=== PATIENT | female | born 1955 | race Caucasian/White ===

== ENCOUNTER → 2023-05-18 07:52 | Outpatient (REF) | payer MEDICARE, SELFPAY | LOC: WDC 07:52 | PROVIDERS: ATTENDING PHYSICIAN Student in an Organized Health Care Education/Training Program | DX: Z12.31 Encounter for screening mammogram for malignant neoplasm of breast (principal) | CPT/HCPCS: 77063; 77067 ==

== ENCOUNTER → 2024-05-23 08:16 | Outpatient (REF) | payer MEDICARE, SELFPAY | LOC: WDC 08:16 | PROVIDERS: ATTENDING PHYSICIAN Physician Assistant | DX: Z12.31 Encounter for screening mammogram for malignant neoplasm of breast (principal) | CPT/HCPCS: 77063; 77067 ==

== ENCOUNTER → 2024-05-25 08:33 | Outpatient (REF) | payer MEDICARE, SELFPAY | LOC: RAD 08:33 | PROVIDERS: ATTENDING PHYSICIAN Physician Assistant; FAMILY PHYSICIAN Student in an Organized Health Care Education/Training Program | DX: M85.80 Other specified disorders of bone density and structure, unspecified site (principal); M85.89 Other specified disorders of bone density and structure, multiple sites | CPT/HCPCS: 77080 ==

== ENCOUNTER 2024-10-08 08:44 | Emergency (ER) | payer MEDICARE, SELFPAY ==
[2024-10-08 08:45] VITALS: BP 153/79
--- NOTE | 2024-10-08 09:26 | ED.GENMED ---
History of Present Illness
General
Chief Complaint: Musculo-Skeletal Complaint
Source: patient and spouse
Time Seen by Provider: 10/08/24 09:15
History of Present Illness
History of Present Illness:
69-year-old female presents to the emergency room complaining of pain in her left neck rating to her left shoulder and somewhat down her left arm. No focal weakness. Patient is left-hand dominant. Symptoms began 2 days ago after bending awkwardly
to open a window the day previous. She has a vague sense of perhaps a tingling in her left arm which she identifies as encompassing the entire arm and hand but in a very minor way. No loss of touch sensation. No bowel or bladder dysfunction.
Certain movements, taking a deep breath make the pain worse. She took ibuprofen today 400 mg. No significant improvement. She has had previous thoracic and lumbar spine issues for which she has required physical therapy
Phy Exam
Physical Exam
Physical Exam:
General: Awake, Alert, Oriented X3. No acute distress.
Vitals: unremarkable
Head: Atraumatic
Eyes: Pupils equal, EOMI
Throat: Airway intact, no exudates
Neck: Trachea midline, no tenderness to palpation of the midline cervical spine. Right paraspinal muscular tenderness as well as right trapezius tenderness. She has pain in the right neck and shoulder with axial loading. She denies radiation down
the arm with axial loading
Lungs: Clear and equal b/l
Heart: Regular rate, no murmurs
Abd: Soft, Nontender, No pulsatile mass
Neuro: Cranial nerves intact, muscle strength equal bilaterally, sensation intact bilaterally
Skin: Warm, dry, no rash
Extremities: pulses equal b/l, no edema
Course
Orders/Labs/Results
Orders:
Orders
10/08/24 09:26
Cyclobenzaprine HCl [Flexeril] 10 mg PO NOW STA
Cervical Spine 4 or 5 Vw [CR Cervical Spine 4 Or 5 Vw] Urgent
Comment:
Reason For Exam: left sided neck/arm pain
Vital Signs
Initial and Last Documented VS:
Initial Vital Signs
Temp Pulse Resp BP Pulse Ox
98.0 F 89 17 153/79 99
10/08/24 08:45 10/08/24 08:45 10/08/24 08:45 10/08/24 08:45 10/08/24 08:45
Last Documented Vital Signs
Temp Pulse Resp BP Pulse Ox
98.0 F 89 17 153/79 99
10/08/24 08:45 10/08/24 08:45 10/08/24 08:45 10/08/24 08:45 10/08/24 09:30
MDM/Problems Addressed
Differential Diagnosis Includes:
Paracervical muscle strain, cervical radiculopathy, cervical DJD
MDM/Problems Addressed:
Patient presents with neck pain and pain down left shoulder and arm. Patient's x-rays show degenerative changes that would be consistent with her symptoms. Will treat with a short course of steroids, muscle relaxant. Patient plans on traveling
starting tomorrow for an extended trip to [place]. Told her to expect this pain to gradually improve rather than quickly improved.
*Radiology
Radiology exam reviewed: radiology read reviewed
*Pulse Oximetry
SaO2: 99
Oxygen Mode of Delivery: Room air
Patient hypoxic: no
*Critical Care Note
Total Time (30-74mins, 75-104mins- exclusive of procedures): Not Applicable
ED Attending Note
-
Portions of this chart may have been created with voice recognition software.� Occasional wrong word or��sound alike� substitutions may have occurred due to the inherent limitations of voice recognition software.
Discharge Plan
Departure
Patient Disposition: Home (Routine Discharge)
Date of Disposition: 10/08/24
Time of Disposition: 10:38
Patient with high blood pressure during this ER visit?: Yes
Condition: Good
Discharge Problem:
Neck pain, Cervical radiculopathy
Instructions: Radiculopathy of the neck and back (including sciatica) (DC), Neck pain - ED (DC)
Prescriptions:
New
metaxalone 800 mg tablet
800 mg PO TID PRN (Reason: muscle pain) Qty: 20 0RF
prednisone 20 mg tablet
40 mg PO DAILY Qty: 8 0RF
Referrals:
Wilfred Hernandez MD [Active, Anesthesiology]
Kortney Duenas MD [Family Provider, Internal Medicine]
Activity Restrictions/Additional Instructions:
Your x-ray shows moderate to severe changes in the cervical spine on the left which is likely the reason for your neck pain. I have ordered a short course of prednisone to help reduce inflammation and reduce pain as well as a muscle relaxant. Also
take Tylenol every 6 hours for pain. You should not combine Celebrex with ibuprofen. I have given you contact information for Dr. Hernandez who specialized in treating neck and back pain.
Interventions
Interventions:
*Risk Screen - Suicide Last Done: 10/08/24 08:49
*General Assessment Last Done: 10/08/24 08:49
*Neglect/Abuse Screening Last Done: 10/08/24 08:49
*ED COVID-19 Vaccine History Last Done: 10/08/24 08:49
*Nursing Disposition Last Done: 10/08/24 11:00
ED-Musculoskeletal Assessment Last Done: 10/08/24 09:06
Discharge Date and Time
Discharge Date/Time: 10/08/24 11:00
Print Language: BRUNEIAN
[2024-10-08] MEDS: FLEXERIL 10 MG PO (09:46)
== END 2024-10-08 11:00 | disposition home or self-care (01) ==
LOC: EMR 08:44
PROVIDERS: EMERGENCY PHYSICIAN Emergency Medicine; FAMILY PHYSICIAN Student in an Organized Health Care Education/Training Program
DX: M47.22 Other spondylosis with radiculopathy, cervical region (principal); M54.2 Cervicalgia; M25.512 Pain in left shoulder; R20.2 Paresthesia of skin; R03.0 Elevated blood-pressure reading, without diagnosis of hypertension; Z88.6 Allergy status to analgesic agent; Z88.0 Allergy status to penicillin
CPT/HCPCS: 99283; 72050